=== PATIENT | male | born 1960 | race Caucasian/White ===

== ENCOUNTER 2021-06-27 00:58 | Inpatient (IN) | payer BC, MEDICAID ==
[~2021-06-27] VITALS: Ht 185.4 cm; Wt 74.7 kg
[2021-06-27] MEDS ORDERED: SODIUM CHLORIDE 0.9% 1,000 ML IV ONE ×2 (01:30→05:30)
[2021-06-27 01:55] LABS: Basophils # (auto) 0.1 10 ^3/uL (0-0.2); Basophils % (auto) 0.9 % (0.0-2.0); Eosinophils # (auto) 0.2 10 ^3/uL (0-0.8); Eosinophils % (auto) 1.1 % (0.0-7.0); Hematocrit 45.8 % (41.0-53.0); Hemoglobin 15.2 g/dL (13.5-17.5); Lymphocytes # (auto) 2.3 10 ^3/uL (0.4-5.4); Lymphocytes % (auto) 15.9 % (10.0-50.0); Mean Corpuscular Hemoglobin 27.9 pg (28.0-32.0); Mean Corpuscular Hgb Conc. 33.1 g/dL (32.0-36.0); Mean Corpuscular Volume 84.2 fL (80.0-100.0); Monocytes # (auto) 0.9 10 ^3/uL (0-1.3); Monocytes % (auto) 5.9 % (0.0-12.0); Neutrophils % (auto) 76.2 % (37.0-80.0); Red Blood Cells 5.44 10^6/uL (4.5-5.90); Red Cell Distribution Width 14.1 % (11.8-14.3); White Blood Cell 14.5 10^3/uL (4.4-10.8)
[2021-06-27 02:34] LABS: Albumin 3.3 g/dL (3.4-5.0); Calcium 9.1 mg/dL (8.5-10.1)
[2021-06-27 02:36] LABS: BUN/Creatinine Ratio 21.1
[2021-06-27 02:38] LABS: Bilirubin, Total 0.2 mg/dL (0.2-1.0); Total Protein 7.6 g/dL (6.4-8.2)
[2021-06-27] MEDS ORDERED: IOHEXOL 350 MG/ML 100ML IJ ONE (03:08)
[2021-06-27] MEDS ORDERED: ONDANSETRON HCL 4 MG/2 ML VIAL IV PRN (05:30)
[2021-06-27] MEDS ORDERED: ACETAMINOPHEN 325 MG TAB PO PRN (05:30)
[2021-06-27] MEDS ORDERED: InsuLIN REG 1unit/0.01ml Soln (100units/ml) IV ONE (05:30)
[2021-06-27] MEDS ORDERED: DEXTROSE (50%) 50ML SYRG IV PRN (05:30)
[2021-06-27] MEDS: HYDROcodone-ACET 5/325MG TAB PO PRN ×3 (06:39→22:37)
[2021-06-27] MEDS: ACCU-CHEK COMFORT CURVE STRIP VI SCH ×4 (07:01→22:34)
[2021-06-27] MEDS: InsuLIN REG 1unit/0.01ml Soln (100units/ml) SC SCH ×4 (07:06→22:36)
[2021-06-27] MEDS: MIDODRINE HCL 10 MG TAB PO SCH ×3 (09:39→18:02)
[2021-06-27] MEDS: PANTOPRAZOLE 40 MG TAB PO SCH (10:25)
[2021-06-27] MEDS ORDERED: cefTRIAXone 1GM/50ML D5W 50 ML IV ONE (11:45)
[2021-06-27 12:24] LABS: CRP High Sensitivity 0.79 mg/dL (< 0.3)
[2021-06-27] MEDS ORDERED: CLINDAMYCIN 600MG IV 50 ML IV ONE (12:45)
[2021-06-27] MEDS: SODIUM CHLORIDE 0.9% 1,000 ML IV SCH (12:57)
[2021-06-27 17:00] VITALS: BP 169/91
[2021-06-27] MEDS: CLINDAMYCIN 600MG IV 50 ML IV SCH (21:59)
[2021-06-27] MEDS: INSULIN LANTUS (GLARGINE) 1 /0.01ml (100units/ml) SC SCH (22:35)
[2021-06-28] MEDS: SODIUM CHLORIDE 0.9% 1,000 ML IV SCH ×2 (04:25→21:05)
[2021-06-28 05:00] VITALS: BP 129/63
[2021-06-28] MEDS: MIDODRINE HCL 10 MG TAB PO SCH ×3 (05:34→18:43)
[2021-06-28] MEDS: CLINDAMYCIN 600MG IV 50 ML IV SCH ×3 (05:34→20:11)
[2021-06-28] MEDS: ACCU-CHEK COMFORT CURVE STRIP VI SCH ×4 (06:52→23:20)
[2021-06-28] MEDS: INSULIN LANTUS (GLARGINE) 1 /0.01ml (100units/ml) SC SCH ×2 (06:53→23:19)
[2021-06-28] MEDS: InsuLIN REG 1unit/0.01ml Soln (100units/ml) SC SCH ×4 (06:54→22:00)
[2021-06-28 09:00] VITALS: BP 97/60
[2021-06-28 09:10] LABS: Basophils # (auto) 0.1 10 ^3/uL (0-0.2); Basophils % (auto) 1.2 % (0.0-2.0); Eosinophils # (auto) 0.4 10 ^3/uL (0-0.8); Hematocrit 41.4 % (41.0-53.0); Hemoglobin 13.8 g/dL (13.5-17.5); Lymphocytes # (auto) 2.3 10 ^3/uL (0.4-5.4); Lymphocytes % (auto) 31.7 % (10.0-50.0); Mean Corpuscular Hgb Conc. 33.3 g/dL (32.0-36.0); Mean Corpuscular Volume 84.2 fL (80.0-100.0); Monocytes # (auto) 0.6 10 ^3/uL (0-1.3); Monocytes % (auto) 7.9 % (0.0-12.0); Neutrophils # (auto) 3.8 10 ^3/uL (1.6-8.6); Neutrophils % (auto) 53.2 % (37.0-80.0); Nucleated Red Blood Cells % 0.1 %; Red Blood Cells 4.92 10^6/uL (4.5-5.90); Red Cell Distribution Width 13.6 % (11.8-14.3); White Blood Cell 7.2 10^3/uL (4.4-10.8)
[2021-06-28 09:23] LABS: INR 1.04 (0.9-1.15); Partial Thromboplastin Time 25.9 sec (23.6-33.0)
[2021-06-28] MEDS: cefTRIAXone 1GM/50ML D5W 50 ML IV SCH (10:20)
[2021-06-28] MEDS: PANTOPRAZOLE 40 MG TAB PO SCH (10:21)
[2021-06-28] MEDS: HYDROcodone-ACET 5/325MG TAB PO PRN (10:32)
[2021-06-28 10:52] LABS: Potassium 4.3 mmol/L (3.5-5.1)
[2021-06-28 11:32] LABS: Albumin 2.7 g/dL (3.4-5.0); BUN/Creatinine Ratio 26.9; Bilirubin, Total 0.4 mg/dL (0.2-1.0); Calcium 8.5 mg/dL (8.5-10.1); Magnesium 2.2 mg/dL (1.6-2.6); Phosphorus 4.5 mg/dL (2.5-4.90); Total Protein 6.7 g/dL (6.4-8.2)
[2021-06-28 13:00] VITALS: BP 136/77
[2021-06-28 16:41] LABS: Urine WBC None Seen /hpf (0 - 3)
[2021-06-28 17:00] VITALS: BP 118/77
[2021-06-28 17:03] LABS: Urine Bacteria NONE SEEN /hpf (None Seen); Urine Blood Negative /uL (Negative); Urine Specific Gravity 1.015 (1.001-1.035)
[2021-06-28 17:11] LABS: Alcohol, Urine < 3.0 mg/dL (0-10); Amphetamine Screen, Urine POSITIVE (NEGATIVE); Barbiturate Scree,Urine NEGATIVE (NEGATIVE); Benzodiazephine Screen, Urine NEGATIVE (NEGATIVE); Cannabinoid Screen, Urine NEGATIVE (NEGATIVE); Cocaine Screen, Urine NEGATIVE (NEGATIVE); Phencyclidine Screen, Urine NEGATIVE (NEGATIVE)
[2021-06-28 17:19] LABS: Opiate Scree,Urine NEGATIVE (NEGATIVE)
[2021-06-28 22:00] VITALS: BP 142/76
[2021-06-29 05:00] VITALS: BP 121/63
[2021-06-29 05:42] LABS: Basophils # (auto) 0.1 10 ^3/uL (0-0.2); Eosinophils # (auto) 0.3 10 ^3/uL (0-0.8); Eosinophils % (auto) 4.2 % (0.0-7.0); Hemoglobin 14.3 g/dL (13.5-17.5); Lymphocytes # (auto) 1.8 10 ^3/uL (0.4-5.4); Lymphocytes % (auto) 22.4 % (10.0-50.0); Mean Corpuscular Hemoglobin 28.7 pg (28.0-32.0); Mean Corpuscular Hgb Conc. 34.9 g/dL (32.0-36.0); Mean Corpuscular Volume 82.2 fL (80.0-100.0); Monocytes # (auto) 0.5 10 ^3/uL (0-1.3); Monocytes % (auto) 6.6 % (0.0-12.0); Neutrophils # (auto) 5.3 10 ^3/uL (1.6-8.6); Neutrophils % (auto) 65.8 % (37.0-80.0); Nucleated Red Blood Cells % 0.1 %; Red Blood Cells 4.99 10^6/uL (4.5-5.90); Red Cell Distribution Width 13.6 % (11.8-14.3); White Blood Cell 8.1 10^3/uL (4.4-10.8)
[2021-06-29 05:46] LABS: INR 1.03 (0.9-1.15); Partial Thromboplastin Time 26.5 sec (23.6-33.0)
[2021-06-29] MEDS: CLINDAMYCIN 600MG IV 50 ML IV SCH ×3 (05:52→21:22)
[2021-06-29] MEDS: ACCU-CHEK COMFORT CURVE STRIP VI SCH ×4 (05:52→21:22)
[2021-06-29] MEDS: INSULIN LANTUS (GLARGINE) 1 /0.01ml (100units/ml) SC SCH ×2 (05:53→21:26)
[2021-06-29] MEDS: InsuLIN REG 1unit/0.01ml Soln (100units/ml) SC SCH ×4 (05:54→22:58)
[2021-06-29] MEDS: MIDODRINE HCL 10 MG TAB PO SCH ×3 (05:55→17:35)
[2021-06-29 06:00] LABS: Albumin 2.9 g/dL (3.4-5.0); Calcium 8.8 mg/dL (8.5-10.1); Potassium 4.3 mmol/L (3.5-5.1)
[2021-06-29 06:02] LABS: BUN/Creatinine Ratio 23.3
[2021-06-29 06:04] LABS: Bilirubin, Total 0.3 mg/dL (0.2-1.0); Total Protein 6.9 g/dL (6.4-8.2)
[2021-06-29 09:00] VITALS: BP 109/64
[2021-06-29] MEDS: PANTOPRAZOLE 40 MG TAB PO SCH (10:10)
[2021-06-29] MEDS: cefTRIAXone 1GM/50ML D5W 50 ML IV SCH (10:10)
[2021-06-29 13:00] VITALS: BP 99/72
[2021-06-29] MEDS: SODIUM CHLORIDE 0.9% 1,000 ML IV SCH (15:17)
[2021-06-29] MEDS ORDERED: CHOLECALCIFEROL (VITD3) 2,000 UNIT CAP/TAB PO ONE (16:45)
[2021-06-29 17:00] VITALS: BP 157/84
[2021-06-29] MEDS: AMPICILLIN INJ 1 GM in SODIUM CHL 0.9% 50 ML IV SCH (18:43)
[2021-06-29 22:00] VITALS: BP 116/79
[2021-06-30] MEDS: AMPICILLIN INJ 1 GM in SODIUM CHL 0.9% 50 ML IV SCH ×4 (00:10→17:46)
[2021-06-30] MEDS: HYDROcodone-ACET 5/325MG TAB PO PRN ×2 (03:16→12:00)
[2021-06-30 05:17] VITALS: BP 95/53
[2021-06-30] MEDS: CLINDAMYCIN 600MG IV 50 ML IV SCH ×3 (05:21→22:17)
[2021-06-30] MEDS: MIDODRINE HCL 10 MG TAB PO SCH ×3 (06:11→17:46)
[2021-06-30] MEDS: SODIUM CHLORIDE 0.9% 1,000 ML IV SCH ×2 (06:25→23:05)
[2021-06-30] MEDS: ACCU-CHEK COMFORT CURVE STRIP VI SCH ×4 (07:10→22:25)
[2021-06-30] MEDS: INSULIN LANTUS (GLARGINE) 1 /0.01ml (100units/ml) SC SCH ×2 (07:11→22:25)
[2021-06-30] MEDS: InsuLIN REG 1unit/0.01ml Soln (100units/ml) SC SCH ×4 (07:12→22:24)
[2021-06-30 09:00] VITALS: BP 90/54
[2021-06-30] MEDS: CHOLECALCIFEROL (VITD3) 2,000 UNIT CAP/TAB PO SCH (09:06)
[2021-06-30] MEDS: PANTOPRAZOLE 40 MG TAB PO SCH (09:06)
[2021-06-30] MEDS ORDERED: APIX5TAB PO (10:33)
[2021-06-30] MEDS ORDERED: INSRTEST IV (10:33)
[2021-06-30 13:00] VITALS: BP 143/90
[2021-06-30 17:00] VITALS: BP 119/83
[2021-06-30 22:00] VITALS: BP 122/65
[2021-07-01] MEDS: AMPICILLIN INJ 1 GM in SODIUM CHL 0.9% 50 ML IV SCH ×4 (01:28→18:45)
[2021-07-01] MEDS: CLINDAMYCIN 600MG IV 50 ML IV SCH ×3 (04:46→20:46)
[2021-07-01 05:06] VITALS: BP 135/77
[2021-07-01] MEDS: MIDODRINE HCL 10 MG TAB PO SCH ×3 (06:01→18:37)
[2021-07-01] MEDS: InsuLIN REG 1unit/0.01ml Soln (100units/ml) SC SCH ×4 (07:01→23:03)
[2021-07-01] MEDS: INSULIN LANTUS (GLARGINE) 1 /0.01ml (100units/ml) SC SCH ×2 (07:02→23:05)
[2021-07-01] MEDS: ACCU-CHEK COMFORT CURVE STRIP VI SCH ×4 (07:02→23:05)
[2021-07-01 07:07] LABS: BUN/Creatinine Ratio 26.7; Calcium 7.6 mg/dL (8.5-10.1); Potassium 3.8 mmol/L (3.5-5.1)
[2021-07-01 09:00] VITALS: BP 92/52
[2021-07-01] MEDS: PANTOPRAZOLE 40 MG TAB PO SCH (09:32)
[2021-07-01] MEDS: CHOLECALCIFEROL (VITD3) 2,000 UNIT CAP/TAB PO SCH (09:32)
[2021-07-01] MEDS ORDERED: ROPIVACAINE 0.5% (5MG/ML) 20ML AMPULE IJ ONE (09:38)
[2021-07-01] MEDS ORDERED: ceFAZolin 1GM VL ONE (09:38)
[2021-07-01] MEDS ORDERED: hydrALAZINE HCL 20 MG/ML VL IV PRN (10:30)
[2021-07-01] MEDS ORDERED: ACCU-CHEK COMFORT CURVE STRIP VI ONE (10:30)
[2021-07-01] MEDS ORDERED: ONDANSETRON HCL 4 MG/2 ML VIAL IV PRN ×2 (10:30→11:30)
[2021-07-01] MEDS ORDERED: LABETALOL HCL 5 MG/ML 4ML SYRINGE IV PRN ×2 (10:30→11:30)
[2021-07-01] MEDS ORDERED: MORPHINE SULFATE 4 MG/ML SYR/VIAL IV PRN ×2 (10:30→11:30)
[2021-07-01] MEDS ORDERED: MIDAZOLAM HCL 2MG/2ML 2ml VIAL (1mg/ml) IV PRN ×2 (10:30→11:30)
[2021-07-01] MEDS ORDERED: ePHEDrine SULFATE 50 MG/ML AMP IV PRN ×2 (10:30→11:30)
[2021-07-01] MEDS ORDERED: HYDROmorphone HCL 2 MG/ML VL IV PRN ×2 (10:30→11:30)
[2021-07-01] MEDS ORDERED: ceFAZolin 1GM/50ML 100 ML IV ONE (10:31)
[2021-07-01] MEDS ORDERED: PHENYLEPHRINE HCL 10 MG/ML VL IV ONE (10:35)
[2021-07-01] MEDS ORDERED: SUCCINYLCHOLINE CHLORIDE 20 MG/ML 10ML VIAL IV ONE (10:35)
[2021-07-01] MEDS ORDERED: PROPOFOL 10 MG/ML 20 ML IV ONE (10:35)
[2021-07-01] MEDS ORDERED: MIDAZOLAM HCL 2MG/2ML 2ml VIAL (1mg/ml) ONE (10:35)
[2021-07-01] MEDS ORDERED: MEPERIDINE HCL (50 MG/ML) 1 ML VIAL ONE (10:35)
[2021-07-01] MEDS ORDERED: fentaNYL CITRATE 100 MCG/2 ML VL ONE (10:35)
[2021-07-01] MEDS ORDERED: DexAMETHasone SOD PHOS 10MG/1ML VIAL INJ ONE (12:14)
[2021-07-01] MEDS: SODIUM CHLORIDE 0.9% 1,000 ML IV SCH (15:43)
[2021-07-01 17:00] VITALS: BP 98/64
[2021-07-01] MEDS: HYDROcodone-ACET 5/325MG TAB PO PRN (20:45)
[2021-07-01 22:00] VITALS: BP 106/57
[2021-07-02] MEDS: AMPICILLIN INJ 1 GM in SODIUM CHL 0.9% 50 ML IV SCH ×3 (00:52→11:00)
[2021-07-02 05:00] VITALS: BP 115/61
[2021-07-02] MEDS: CLINDAMYCIN 600MG IV 50 ML IV SCH ×3 (05:49→22:17)
[2021-07-02] MEDS: MIDODRINE HCL 10 MG TAB PO SCH ×3 (06:57→18:07)
[2021-07-02] MEDS: InsuLIN REG 1unit/0.01ml Soln (100units/ml) SC SCH ×4 (06:59→20:00)
[2021-07-02] MEDS: ACCU-CHEK COMFORT CURVE STRIP VI SCH ×3 (07:00→20:48)
[2021-07-02] MEDS: INSULIN LANTUS (GLARGINE) 1 /0.01ml (100units/ml) SC SCH ×2 (07:00→22:18)
[2021-07-02 07:03] LABS: Basophils # (auto) 0.1 10 ^3/uL (0-0.2); Basophils % (auto) 0.4 % (0.0-2.0); Eosinophils # (auto) 0 10 ^3/uL (0-0.8); Eosinophils % (auto) 0.2 % (0.0-7.0); Hematocrit 37.3 % (41.0-53.0); Hemoglobin 12.9 g/dL (13.5-17.5); Lymphocytes # (auto) 1.7 10 ^3/uL (0.4-5.4); Lymphocytes % (auto) 10.9 % (10.0-50.0); Mean Corpuscular Hemoglobin 28.3 pg (28.0-32.0); Mean Corpuscular Hgb Conc. 34.5 g/dL (32.0-36.0); Mean Corpuscular Volume 81.9 fL (80.0-100.0); Monocytes % (auto) 6.5 % (0.0-12.0); Neutrophils # (auto) 12.9 10 ^3/uL (1.6-8.6); Nucleated Red Blood Cells % 0.1 %; Red Blood Cells 4.56 10^6/uL (4.5-5.90); Red Cell Distribution Width 13.7 % (11.8-14.3); White Blood Cell 15.8 10^3/uL (4.4-10.8)
[2021-07-02 07:10] LABS: BUN/Creatinine Ratio 26.4; Calcium 8.9 mg/dL (8.5-10.1); Magnesium 1.9 mg/dL (1.6-2.6); Potassium 4.1 mmol/L (3.5-5.1)
[2021-07-02] MEDS: SODIUM CHLORIDE 0.9% 1,000 ML IV SCH (08:25)
[2021-07-02 09:00] VITALS: BP 118/74
[2021-07-02] MEDS: PANTOPRAZOLE 40 MG TAB PO SCH (10:31)
[2021-07-02] MEDS: CHOLECALCIFEROL (VITD3) 2,000 UNIT CAP/TAB PO SCH (10:31)
[2021-07-02 13:00] VITALS: BP 129/73
[2021-07-02] MEDS ORDERED: DEXTROSE (50%) 50ML SYRG IV PRN (14:15)
[2021-07-02] MEDS ORDERED: MAGNESIUM SULFATE 1GM/100ML 100 ML IV ONE (14:15)
[2021-07-02] MEDS ORDERED: cefTRIAXone 1GM/50ML D5W 50 ML IV ONE (14:15)
[2021-07-02] MEDS: HYDROcodone-ACET 5/325MG TAB PO PRN (16:55)
[2021-07-02 17:00] VITALS: BP 115/69
[2021-07-02 22:00] VITALS: BP 120/70
[2021-07-03] MEDS: InsuLIN REG 1unit/0.01ml Soln (100units/ml) SC SCH ×6 (00:23→20:27)
[2021-07-03] MEDS: ACCU-CHEK COMFORT CURVE STRIP VI SCH ×5 (00:23→20:27)
[2021-07-03] MEDS: SODIUM CHLORIDE 0.9% 1,000 ML IV SCH (01:29)
[2021-07-03 05:00] VITALS: BP 105/54
[2021-07-03] MEDS: CLINDAMYCIN 600MG IV 50 ML IV SCH ×2 (05:03→12:52)
[2021-07-03 06:13] LABS: Basophils # (auto) 0.1 10 ^3/uL (0-0.2); Basophils % (auto) 0.7 % (0.0-2.0); Eosinophils # (auto) 0.2 10 ^3/uL (0-0.8); Eosinophils % (auto) 1.7 % (0.0-7.0); Hematocrit 36.4 % (41.0-53.0); Hemoglobin 12.6 g/dL (13.5-17.5); Lymphocytes # (auto) 1.9 10 ^3/uL (0.4-5.4); Lymphocytes % (auto) 19.1 % (10.0-50.0); Mean Corpuscular Hemoglobin 28.7 pg (28.0-32.0); Mean Corpuscular Hgb Conc. 34.7 g/dL (32.0-36.0); Mean Corpuscular Volume 82.8 fL (80.0-100.0); Monocytes # (auto) 1.2 10 ^3/uL (0-1.3); Monocytes % (auto) 12.5 % (0.0-12.0); Neutrophils # (auto) 6.5 10 ^3/uL (1.6-8.6); Nucleated Red Blood Cells % 0.1 %; Red Blood Cells 4.39 10^6/uL (4.5-5.90); Red Cell Distribution Width 13.7 % (11.8-14.3); White Blood Cell 9.9 10^3/uL (4.4-10.8)
[2021-07-03] MEDS: MIDODRINE HCL 10 MG TAB PO SCH ×2 (06:24→12:50)
[2021-07-03] MEDS: INSULIN LANTUS (GLARGINE) 1 /0.01ml (100units/ml) SC SCH ×2 (06:40→23:10)
[2021-07-03 06:55] LABS: Magnesium 1.8 mg/dL (1.6-2.6); Potassium 3.8 mmol/L (3.5-5.1)
[2021-07-03 09:00] VITALS: BP 92/53
[2021-07-03] MEDS: CHOLECALCIFEROL (VITD3) 2,000 UNIT CAP/TAB PO SCH (09:57)
[2021-07-03] MEDS: PANTOPRAZOLE 40 MG TAB PO SCH (09:57)
[2021-07-03] MEDS: cefTRIAXone 1GM/50ML D5W 50 ML IV SCH (09:57)
[2021-07-03 13:00] VITALS: BP 116/74
[2021-07-03] MEDS: HYDROcodone-ACET 5/325MG TAB PO PRN (14:08)
[2021-07-03 16:55] VITALS: BP 122/54
[2021-07-03 22:00] VITALS: BP 107/66
[2021-07-04] MEDS: ACCU-CHEK COMFORT CURVE STRIP VI SCH ×6 (00:30→21:59)
[2021-07-04] MEDS: CLINDAMYCIN 600MG IV 50 ML IV SCH ×4 (00:34→21:59)
[2021-07-04] MEDS: SODIUM CHLORIDE 0.9% 1,000 ML IV SCH (00:35)
[2021-07-04] MEDS: InsuLIN REG 1unit/0.01ml Soln (100units/ml) SC SCH ×6 (04:41→21:57)
[2021-07-04 05:00] VITALS: BP 104/53
[2021-07-04 06:12] LABS: Hematocrit 36.8 % (41.0-53.0); Hemoglobin 13.1 g/dL (13.5-17.5)
[2021-07-04] MEDS: INSULIN LANTUS (GLARGINE) 1 /0.01ml (100units/ml) SC SCH ×2 (06:35→21:58)
[2021-07-04] MEDS: MIDODRINE HCL 10 MG TAB PO SCH ×3 (06:43→19:50)
[2021-07-04 08:27] VITALS: BP 99/66
[2021-07-04] MEDS: cefTRIAXone 1GM/50ML D5W 50 ML IV SCH (11:02)
[2021-07-04] MEDS: PANTOPRAZOLE 40 MG TAB PO SCH (11:03)
[2021-07-04] MEDS: HYDROcodone-ACET 5/325MG TAB PO PRN (11:03)
[2021-07-04] MEDS: CHOLECALCIFEROL (VITD3) 2,000 UNIT CAP/TAB PO SCH (11:04)
[2021-07-04 12:00] VITALS: BP 152/90
[2021-07-04 16:18] VITALS: BP 99/52
[2021-07-04 22:00] VITALS: BP 156/88
[2021-07-05] MEDS: InsuLIN REG 1unit/0.01ml Soln (100units/ml) SC SCH ×6 (00:22→20:08)
[2021-07-05] MEDS: ACCU-CHEK COMFORT CURVE STRIP VI SCH ×6 (02:06→20:06)
[2021-07-05] MEDS: HYDROcodone-ACET 5/325MG TAB PO PRN ×3 (02:18→19:13)
[2021-07-05 05:00] VITALS: BP 115/70
[2021-07-05] MEDS: CLINDAMYCIN 600MG IV 50 ML IV SCH ×3 (05:06→20:06)
[2021-07-05] MEDS: MIDODRINE HCL 10 MG TAB PO SCH ×3 (06:04→18:22)
[2021-07-05 09:00] VITALS: BP 142/82
[2021-07-05] MEDS: cefTRIAXone 1GM/50ML D5W 50 ML IV SCH (09:06)
[2021-07-05] MEDS: INSULIN LANTUS (GLARGINE) 1 /0.01ml (100units/ml) SC SCH ×2 (09:07→20:08)
[2021-07-05] MEDS: CHOLECALCIFEROL (VITD3) 2,000 UNIT CAP/TAB PO SCH (10:52)
[2021-07-05] MEDS: PANTOPRAZOLE 40 MG TAB PO SCH (10:52)
[2021-07-05 12:30] VITALS: BP 137/70
[2021-07-05 17:05] VITALS: BP 97/49
[2021-07-05 22:08] VITALS: BP 135/72
[2021-07-06] MEDS: InsuLIN REG 1unit/0.01ml Soln (100units/ml) SC SCH ×6 (00:20→23:54)
[2021-07-06] MEDS: ACCU-CHEK COMFORT CURVE STRIP VI SCH ×7 (00:20→23:51)
[2021-07-06] MEDS: CLINDAMYCIN 600MG IV 50 ML IV SCH ×3 (04:02→21:13)
[2021-07-06 05:00] VITALS: BP 127/66
[2021-07-06] MEDS: MIDODRINE HCL 10 MG TAB PO SCH ×4 (05:36→17:52)
[2021-07-06] MEDS: HYDROcodone-ACET 5/325MG TAB PO PRN ×3 (05:37→21:13)
[2021-07-06] MEDS: INSULIN LANTUS (GLARGINE) 1 /0.01ml (100units/ml) SC SCH ×2 (06:22→21:15)
[2021-07-06 09:00] VITALS: BP 133/72
[2021-07-06] MEDS: cefTRIAXone 1GM/50ML D5W 50 ML IV SCH (09:18)
[2021-07-06] MEDS: PANTOPRAZOLE 40 MG TAB PO SCH (09:18)
[2021-07-06] MEDS: CHOLECALCIFEROL (VITD3) 2,000 UNIT CAP/TAB PO SCH (09:19)
[2021-07-06] MEDS ORDERED: DEXTROSE (50%) 50ML SYRG IV PRN (11:45)
[2021-07-06] MEDS ORDERED: CHOL20007 PO (11:48)
[2021-07-06] MEDS ORDERED: PANT40TA2 PO (11:48)
[2021-07-06] MEDS ORDERED: INSLANTI SC (11:48)
[2021-07-06] MEDS ORDERED: MIDO5TAB3 PO (11:48)
[2021-07-06 12:32] VITALS: BP 120/64
[2021-07-06 13:54] LABS: Basophils # (auto) 0.1 10 ^3/uL (0-0.2); Basophils % (auto) 0.8 % (0.0-2.0); Eosinophils # (auto) 0.3 10 ^3/uL (0-0.8); Eosinophils % (auto) 3.3 % (0.0-7.0); Hematocrit 34.6 % (41.0-53.0); Lymphocytes # (auto) 2.2 10 ^3/uL (0.4-5.4); Lymphocytes % (auto) 20.7 % (10.0-50.0); Mean Corpuscular Hemoglobin 28.6 pg (28.0-32.0); Mean Corpuscular Hgb Conc. 34.5 g/dL (32.0-36.0); Mean Corpuscular Volume 82.9 fL (80.0-100.0); Monocytes # (auto) 0.9 10 ^3/uL (0-1.3); Monocytes % (auto) 8.5 % (0.0-12.0); Neutrophils % (auto) 66.7 % (37.0-80.0); Red Blood Cells 4.18 10^6/uL (4.5-5.90); Red Cell Distribution Width 13.5 % (11.8-14.3); White Blood Cell 10.4 10^3/uL (4.4-10.8)
[2021-07-06 14:07] LABS: Partial Thromboplastin Time 27.9 sec (23.6-33.0)
[2021-07-06 16:42] VITALS: BP 103/60
[2021-07-06] MEDS: APIXABAN 5 MG TAB PO SCH (21:13)
[2021-07-06 22:00] VITALS: BP 108/56
[2021-07-07 05:00] VITALS: BP 121/59
[2021-07-07] MEDS: MIDODRINE HCL 10 MG TAB PO SCH ×3 (05:36→17:51)
[2021-07-07] MEDS: ACCU-CHEK COMFORT CURVE STRIP VI SCH ×3 (05:36→17:50)
[2021-07-07] MEDS: CLINDAMYCIN 600MG IV 50 ML IV SCH (05:36)
[2021-07-07] MEDS: INSULIN LANTUS (GLARGINE) 1 /0.01ml (100units/ml) SC SCH ×2 (05:39→21:12)
[2021-07-07] MEDS: InsuLIN REG 1unit/0.01ml Soln (100units/ml) SC SCH ×3 (05:39→17:50)
[2021-07-07] MEDS: HYDROcodone-ACET 5/325MG TAB PO PRN ×3 (05:40→21:09)
[2021-07-07 06:50] LABS: Basophils # (auto) 0.1 10 ^3/uL (0-0.2); Basophils % (auto) 1.2 % (0.0-2.0); Eosinophils # (auto) 0.4 10 ^3/uL (0-0.8); Eosinophils % (auto) 3.4 % (0.0-7.0); Hematocrit 36.8 % (41.0-53.0); Hemoglobin 12.5 g/dL (13.5-17.5); Lymphocytes # (auto) 2.8 10 ^3/uL (0.4-5.4); Mean Corpuscular Hemoglobin 28.2 pg (28.0-32.0); Mean Corpuscular Volume 82.8 fL (80.0-100.0); Monocytes % (auto) 8.8 % (0.0-12.0); Neutrophils # (auto) 7.3 10 ^3/uL (1.6-8.6); Neutrophils % (auto) 62.6 % (37.0-80.0); Nucleated Red Blood Cells % 0.2 %; Red Blood Cells 4.44 10^6/uL (4.5-5.90); Red Cell Distribution Width 13.6 % (11.8-14.3); White Blood Cell 11.7 10^3/uL (4.4-10.8)
[2021-07-07 07:07] LABS: BUN/Creatinine Ratio 20.6; Calcium 9.2 mg/dL (8.5-10.1); Magnesium 2.2 mg/dL (1.6-2.6); Potassium 4.2 mmol/L (3.5-5.1)
[2021-07-07 09:00] VITALS: BP 104/57
[2021-07-07] MEDS: APIXABAN 5 MG TAB PO SCH ×2 (09:43→21:09)
[2021-07-07] MEDS: cefTRIAXone 1GM/50ML D5W 50 ML IV SCH (09:43)
[2021-07-07] MEDS: PANTOPRAZOLE 40 MG TAB PO SCH (09:43)
[2021-07-07] MEDS: CHOLECALCIFEROL (VITD3) 2,000 UNIT CAP/TAB PO SCH (09:44)
[2021-07-07 12:00] VITALS: BP 103/58
[2021-07-07] MEDS: DAPTOmycin 500 MG in SODIUM CHL 0.9% 50 ML IV SCH (13:20)
[2021-07-07 17:30] VITALS: BP 100/52
[2021-07-07] MEDS: Juven Fruit Punch Powder PACKET 28.8gm PO SCH (17:51)
[2021-07-07 22:00] VITALS: BP 99/50
[2021-07-08] MEDS: ACCU-CHEK COMFORT CURVE STRIP VI SCH ×4 (00:08→17:49)
[2021-07-08] MEDS: InsuLIN REG 1unit/0.01ml Soln (100units/ml) SC SCH ×4 (00:08→17:49)
[2021-07-08 05:00] VITALS: BP 102/49
[2021-07-08] MEDS: MIDODRINE HCL 10 MG TAB PO SCH ×3 (07:02→17:49)
[2021-07-08] MEDS: HYDROcodone-ACET 5/325MG TAB PO PRN ×3 (07:04→22:20)
[2021-07-08] MEDS: INSULIN LANTUS (GLARGINE) 1 /0.01ml (100units/ml) SC SCH ×2 (07:09→22:33)
[2021-07-08 08:00] VITALS: BP 102/66
[2021-07-08] MEDS: cefTRIAXone 1GM/50ML D5W 50 ML IV SCH (09:52)
[2021-07-08] MEDS: Juven Fruit Punch Powder PACKET 28.8gm PO SCH ×2 (09:52→17:49)
[2021-07-08] MEDS: PANTOPRAZOLE 40 MG TAB PO SCH (09:53)
[2021-07-08] MEDS: APIXABAN 5 MG TAB PO SCH ×2 (09:53→22:19)
[2021-07-08] MEDS: FLORASTOR (S. BOULARDII) 250 MG CAP PO SCH (09:53)
[2021-07-08] MEDS: CHOLECALCIFEROL (VITD3) 2,000 UNIT CAP/TAB PO SCH (09:53)
[2021-07-08] MEDS ORDERED: SACC250C PO (11:17)
[2021-07-08 12:00] VITALS: BP 102/55
[2021-07-08] MEDS: DAPTOmycin 500 MG in SODIUM CHL 0.9% 50 ML IV SCH (13:10)
[2021-07-08 16:00] VITALS: BP 104/53
[2021-07-08 22:00] VITALS: BP 112/55
[2021-07-09] VITALS (7 sets, daily range): BP systolic 89–130; BP diastolic 52–70
[2021-07-09] MEDS: HYDROcodone-ACET 5/325MG TAB PO PRN ×3 (04:51→18:11)
[2021-07-09 05:31] LABS: Basophils # (auto) 0.1 10 ^3/uL (0-0.2); Basophils % (auto) 0.8 % (0.0-2.0); Eosinophils # (auto) 0.4 10 ^3/uL (0-0.8); Eosinophils % (auto) 3.1 % (0.0-7.0); Hematocrit 35.8 % (41.0-53.0); Hemoglobin 12.3 g/dL (13.5-17.5); Lymphocytes # (auto) 2.7 10 ^3/uL (0.4-5.4); Lymphocytes % (auto) 22.7 % (10.0-50.0); Mean Corpuscular Hemoglobin 28.5 pg (28.0-32.0); Mean Corpuscular Hgb Conc. 34.5 g/dL (32.0-36.0); Mean Corpuscular Volume 82.6 fL (80.0-100.0); Monocytes # (auto) 0.8 10 ^3/uL (0-1.3); Monocytes % (auto) 7.2 % (0.0-12.0); Neutrophils # (auto) 7.8 10 ^3/uL (1.6-8.6); Neutrophils % (auto) 66.2 % (37.0-80.0); Nucleated Red Blood Cells % 0.1 %; Red Blood Cells 4.33 10^6/uL (4.5-5.90); Red Cell Distribution Width 13.5 % (11.8-14.3); White Blood Cell 11.8 10^3/uL (4.4-10.8)
[2021-07-09 05:47] LABS: BUN/Creatinine Ratio 30.6; Calcium 9.3 mg/dL (8.5-10.1); Potassium 4.2 mmol/L (3.5-5.1)
[2021-07-09] MEDS: MIDODRINE HCL 10 MG TAB PO SCH ×3 (05:57→17:59)
[2021-07-09] MEDS: ACCU-CHEK COMFORT CURVE STRIP VI SCH ×4 (05:57→18:00)
[2021-07-09] MEDS: InsuLIN REG 1unit/0.01ml Soln (100units/ml) SC SCH ×4 (05:58→18:00)
[2021-07-09] MEDS: INSULIN LANTUS (GLARGINE) 1 /0.01ml (100units/ml) SC SCH ×2 (06:03→22:16)
[2021-07-09] MEDS: Juven Fruit Punch Powder PACKET 28.8gm PO SCH ×2 (08:27→17:59)
[2021-07-09] MEDS: FLORASTOR (S. BOULARDII) 250 MG CAP PO SCH (08:28)
[2021-07-09] MEDS: APIXABAN 5 MG TAB PO SCH ×2 (08:28→22:15)
[2021-07-09] MEDS: CHOLECALCIFEROL (VITD3) 2,000 UNIT CAP/TAB PO SCH (08:29)
[2021-07-09] MEDS: PANTOPRAZOLE 40 MG TAB PO SCH (08:29)
[2021-07-09] MEDS: cefTRIAXone 1GM/50ML D5W 50 ML IV SCH (08:44)
[2021-07-09] MEDS: DAPTOmycin 500 MG in SODIUM CHL 0.9% 50 ML IV SCH (14:48)
[2021-07-10] MEDS: ACCU-CHEK COMFORT CURVE STRIP VI SCH ×4 (00:01→18:00)
[2021-07-10] MEDS: InsuLIN REG 1unit/0.01ml Soln (100units/ml) SC SCH ×4 (00:08→18:00)
[2021-07-10] MEDS: HYDROcodone-ACET 5/325MG TAB PO PRN ×2 (02:17→09:59)
[2021-07-10 04:44] VITALS: BP 123/67
[2021-07-10 06:03] LABS: Basophils # (auto) 0.1 10 ^3/uL (0-0.2); Basophils % (auto) 1.3 % (0.0-2.0); Eosinophils # (auto) 0.4 10 ^3/uL (0-0.8); Eosinophils % (auto) 3.8 % (0.0-7.0); Hematocrit 32.9 % (41.0-53.0); Hemoglobin 11.5 g/dL (13.5-17.5); Lymphocytes % (auto) 27.2 % (10.0-50.0); Mean Corpuscular Hemoglobin 28.6 pg (28.0-32.0); Mean Corpuscular Hgb Conc. 35.1 g/dL (32.0-36.0); Mean Corpuscular Volume 81.5 fL (80.0-100.0); Monocytes # (auto) 0.8 10 ^3/uL (0-1.3); Monocytes % (auto) 7.7 % (0.0-12.0); Neutrophils # (auto) 6.6 10 ^3/uL (1.6-8.6); Red Blood Cells 4.04 10^6/uL (4.5-5.90); Red Cell Distribution Width 12.9 % (11.8-14.3); White Blood Cell 11.1 10^3/uL (4.4-10.8)
[2021-07-10] MEDS: INSULIN LANTUS (GLARGINE) 1 /0.01ml (100units/ml) SC SCH ×2 (06:11→22:00)
[2021-07-10] MEDS: MIDODRINE HCL 10 MG TAB PO SCH ×3 (06:11→18:00)
[2021-07-10 08:00] VITALS: BP_SYST 157; BP_SYST 80; BP_DIAS 63; BP_DIAS 80
[2021-07-10] MEDS: Juven Fruit Punch Powder PACKET 28.8gm PO SCH ×2 (08:00→18:00)
[2021-07-10] MEDS: cefTRIAXone 1GM/50ML D5W 50 ML IV SCH ×2 (09:00→10:22)
[2021-07-10] MEDS: CHOLECALCIFEROL (VITD3) 2,000 UNIT CAP/TAB PO SCH (09:57)
[2021-07-10] MEDS: FLORASTOR (S. BOULARDII) 250 MG CAP PO SCH (09:58)
[2021-07-10] MEDS: APIXABAN 5 MG TAB PO SCH ×2 (09:58→22:00)
[2021-07-10] MEDS: PANTOPRAZOLE 40 MG TAB PO SCH (09:58)
[2021-07-10] MEDS ORDERED: MORPHINE SULFATE INJECTION 2 MG/ML SYRG IV ONE (11:30)
[2021-07-10] MEDS ORDERED: LACTULOSE 20Gm/30ML SOLN PO ONE (11:30)
[2021-07-10 12:00] VITALS: BP 158/90
[2021-07-10] MEDS: DAPTOmycin 500 MG in SODIUM CHL 0.9% 50 ML IV SCH (14:00)
[2021-07-10 16:00] VITALS: BP 131/62
[2021-07-10 22:00] VITALS: BP 121/59
[2021-07-11 05:00] VITALS: BP 148/78
[2021-07-11] MEDS: InsuLIN REG 1unit/0.01ml Soln (100units/ml) SC SCH ×5 (05:58→23:58)
[2021-07-11] MEDS: MIDODRINE HCL 10 MG TAB PO SCH ×3 (06:20→18:17)
[2021-07-11] MEDS: ACCU-CHEK COMFORT CURVE STRIP VI SCH ×5 (06:22→23:26)
[2021-07-11] MEDS: INSULIN LANTUS (GLARGINE) 1 /0.01ml (100units/ml) SC SCH ×2 (06:24→23:57)
[2021-07-11] MEDS: Juven Fruit Punch Powder PACKET 28.8gm PO SCH ×2 (08:00→18:20)
[2021-07-11 09:00] VITALS: BP 102/60
[2021-07-11] MEDS: PANTOPRAZOLE 40 MG TAB PO SCH (10:00)
[2021-07-11] MEDS: FLORASTOR (S. BOULARDII) 250 MG CAP PO SCH (10:00)
[2021-07-11] MEDS: CHOLECALCIFEROL (VITD3) 2,000 UNIT CAP/TAB PO SCH (10:00)
[2021-07-11] MEDS: APIXABAN 5 MG TAB PO SCH ×2 (10:00→23:25)
[2021-07-11 13:00] VITALS: BP 113/61
[2021-07-11] MEDS: DAPTOmycin 500 MG in SODIUM CHL 0.9% 50 ML IV SCH (15:00)
[2021-07-11 17:00] VITALS: BP 99/57
[2021-07-11] MEDS: HYDROcodone-ACET 5/325MG TAB PO PRN (20:00)
[2021-07-11 22:00] VITALS: BP 149/70
[2021-07-12 05:00] VITALS: BP 103/46
[2021-07-12] MEDS: MIDODRINE HCL 10 MG TAB PO SCH ×3 (06:48→17:45)
[2021-07-12] MEDS: ACCU-CHEK COMFORT CURVE STRIP VI SCH ×3 (06:49→17:35)
[2021-07-12] MEDS: INSULIN LANTUS (GLARGINE) 1 /0.01ml (100units/ml) SC SCH ×2 (06:49→21:26)
[2021-07-12] MEDS: InsuLIN REG 1unit/0.01ml Soln (100units/ml) SC SCH ×3 (06:51→17:46)
[2021-07-12 09:00] VITALS: BP 112/72
[2021-07-12] MEDS: APIXABAN 5 MG TAB PO SCH ×2 (09:17→21:25)
[2021-07-12] MEDS: CHOLECALCIFEROL (VITD3) 2,000 UNIT CAP/TAB PO SCH (09:17)
[2021-07-12] MEDS: FLORASTOR (S. BOULARDII) 250 MG CAP PO SCH (09:17)
[2021-07-12] MEDS: Juven Fruit Punch Powder PACKET 28.8gm PO SCH ×2 (09:17→17:45)
[2021-07-12] MEDS: PANTOPRAZOLE 40 MG TAB PO SCH (09:17)
[2021-07-12] MEDS: cefTRIAXone 1GM/50ML D5W 50 ML IV SCH (09:17)
[2021-07-12] MEDS: HYDROcodone-ACET 5/325MG TAB PO PRN ×2 (09:18→21:27)
[2021-07-12 13:00] VITALS: BP 110/66
[2021-07-12] MEDS: DAPTOmycin 500 MG in SODIUM CHL 0.9% 50 ML IV SCH (13:09)
[2021-07-12 17:00] VITALS: BP 121/62
[2021-07-12] MEDS: LACTULOSE 20Gm/30ML SOLN PO PRN (21:27)
[2021-07-12 22:00] VITALS: BP 132/82
[2021-07-13] MEDS: ACCU-CHEK COMFORT CURVE STRIP VI SCH ×4 (04:02→18:00)
[2021-07-13] MEDS: HYDROcodone-ACET 5/325MG TAB PO PRN (04:19)
[2021-07-13 05:00] VITALS: BP 139/75
[2021-07-13] MEDS: MIDODRINE HCL 10 MG TAB PO SCH ×3 (07:05→18:15)
[2021-07-13] MEDS: INSULIN LANTUS (GLARGINE) 1 /0.01ml (100units/ml) SC SCH ×2 (07:06→22:17)
[2021-07-13] MEDS: InsuLIN REG 1unit/0.01ml Soln (100units/ml) SC SCH ×4 (07:07→18:15)
[2021-07-13 09:00] VITALS: BP 147/59
[2021-07-13] MEDS: cefTRIAXone 1GM/50ML D5W 50 ML IV SCH (10:10)
[2021-07-13] MEDS: Juven Fruit Punch Powder PACKET 28.8gm PO SCH ×2 (10:10→18:14)
[2021-07-13] MEDS: FLORASTOR (S. BOULARDII) 250 MG CAP PO SCH (10:11)
[2021-07-13] MEDS: APIXABAN 5 MG TAB PO SCH ×2 (10:11→22:12)
[2021-07-13] MEDS: PANTOPRAZOLE 40 MG TAB PO SCH (10:11)
[2021-07-13] MEDS: CHOLECALCIFEROL (VITD3) 2,000 UNIT CAP/TAB PO SCH (10:12)
[2021-07-13 13:00] VITALS: BP 130/89
[2021-07-13] MEDS ORDERED: GADOTERATE MEG 10 MMOL/20ml INJ (0.5MMOL/ml) IV ONE (13:59)
[2021-07-13] MEDS: HYDROcodone-ACET 10/325MG TAB PO PRN ×2 (15:50→22:13)
[2021-07-13] MEDS: DAPTOmycin 500 MG in SODIUM CHL 0.9% 50 ML IV SCH (16:07)
[2021-07-13 17:00] VITALS: BP 107/67
[2021-07-13 22:00] VITALS: BP 137/73
[2021-07-14] MEDS: InsuLIN REG 1unit/0.01ml Soln (100units/ml) SC SCH ×4 (00:07→18:00)
[2021-07-14] MEDS: ACCU-CHEK COMFORT CURVE STRIP VI SCH ×5 (00:20→22:00)
[2021-07-14 05:00] VITALS: BP 126/77
[2021-07-14] MEDS: HYDROcodone-ACET 10/325MG TAB PO PRN ×3 (05:11→20:27)
[2021-07-14 06:28] LABS: Basophils # (auto) 0.1 10 ^3/uL (0-0.2); Basophils % (auto) 0.5 % (0.0-2.0); Eosinophils # (auto) 0.3 10 ^3/uL (0-0.8); Eosinophils % (auto) 2.7 % (0.0-7.0); Hematocrit 36.2 % (41.0-53.0); Hemoglobin 12.3 g/dL (13.5-17.5); Lymphocytes # (auto) 2.4 10 ^3/uL (0.4-5.4); Lymphocytes % (auto) 21.1 % (10.0-50.0); Mean Corpuscular Hemoglobin 27.6 pg (28.0-32.0); Mean Corpuscular Volume 81.3 fL (80.0-100.0); Monocytes # (auto) 0.6 10 ^3/uL (0-1.3); Monocytes % (auto) 5.2 % (0.0-12.0); Neutrophils # (auto) 8.1 10 ^3/uL (1.6-8.6); Neutrophils % (auto) 70.5 % (37.0-80.0); Nucleated Red Blood Cells % 0.1 %; Red Blood Cells 4.45 10^6/uL (4.5-5.90); Red Cell Distribution Width 12.9 % (11.8-14.3); White Blood Cell 11.6 10^3/uL (4.4-10.8)
[2021-07-14 06:39] LABS: Potassium 3.9 mmol/L (3.5-5.1)
[2021-07-14 06:43] LABS: BUN/Creatinine Ratio 30.4; Calcium 9.2 mg/dL (8.5-10.1)
[2021-07-14] MEDS: MIDODRINE HCL 10 MG TAB PO SCH ×3 (06:46→18:02)
[2021-07-14] MEDS: Juven Fruit Punch Powder PACKET 28.8gm PO SCH ×2 (08:00→18:03)
[2021-07-14 09:00] VITALS: BP 94/60
[2021-07-14] MEDS: PANTOPRAZOLE 40 MG TAB PO SCH (09:40)
[2021-07-14] MEDS: FLORASTOR (S. BOULARDII) 250 MG CAP PO SCH (09:40)
[2021-07-14] MEDS: APIXABAN 5 MG TAB PO SCH ×2 (09:40→22:10)
[2021-07-14] MEDS: cefTRIAXone 1GM/50ML D5W 50 ML IV SCH (09:41)
[2021-07-14] MEDS: INSULIN LANTUS (GLARGINE) 1 /0.01ml (100units/ml) SC SCH ×2 (09:41→22:14)
[2021-07-14] MEDS: CHOLECALCIFEROL (VITD3) 2,000 UNIT CAP/TAB PO SCH (09:41)
[2021-07-14 13:00] VITALS: BP 103/59
[2021-07-14] MEDS: DAPTOmycin 500 MG in SODIUM CHL 0.9% 50 ML IV SCH (14:00)
[2021-07-14 16:34] VITALS: BP_SYST 122; BP_SYST 129; BP_DIAS 71; BP_DIAS 92
[2021-07-14] MEDS: MORPHINE SULFATE INJECTION 2 MG/ML SYRG IV PRN (17:23)
[2021-07-14 21:50] VITALS: BP 104/64
[2021-07-14] MEDS: LACTULOSE 20Gm/30ML SOLN PO PRN (22:28)
[2021-07-15 05:00] VITALS: BP 122/65
[2021-07-15] MEDS: MORPHINE SULFATE INJECTION 2 MG/ML SYRG IV PRN ×2 (05:37→15:24)
[2021-07-15] MEDS: InsuLIN REG 1unit/0.01ml Soln (100units/ml) SC SCH ×4 (06:00→18:41)
[2021-07-15] MEDS: ACCU-CHEK COMFORT CURVE STRIP VI SCH ×3 (06:11→18:41)
[2021-07-15] MEDS: MIDODRINE HCL 10 MG TAB PO SCH ×3 (06:11→18:40)
[2021-07-15] MEDS: INSULIN LANTUS (GLARGINE) 1 /0.01ml (100units/ml) SC SCH (06:25)
[2021-07-15 09:07] VITALS: BP 102/47
[2021-07-15] MEDS: Juven Fruit Punch Powder PACKET 28.8gm PO SCH ×2 (10:35→18:40)
[2021-07-15] MEDS: APIXABAN 5 MG TAB PO SCH (10:36)
[2021-07-15] MEDS: cefTRIAXone 1GM/50ML D5W 50 ML IV SCH (10:36)
[2021-07-15] MEDS: CHOLECALCIFEROL (VITD3) 2,000 UNIT CAP/TAB PO SCH (10:37)
[2021-07-15] MEDS: PANTOPRAZOLE 40 MG TAB PO SCH (10:37)
[2021-07-15] MEDS: FLORASTOR (S. BOULARDII) 250 MG CAP PO SCH (10:37)
[2021-07-15 13:00] VITALS: BP 123/77
[2021-07-15] MEDS: DAPTOmycin 500 MG in SODIUM CHL 0.9% 50 ML IV SCH (14:00)
[2021-07-15 16:38] VITALS: BP 139/68
[2021-07-15] MEDS: HYDROcodone-ACET 10/325MG TAB PO PRN (18:41)
== END 2021-07-15 21:10 | DRG 239 ==
LOC: EDBD 00:58 → ER 01:11 → TELE 05:27 → TELE-WESTW 16:28 → WEST WING 07-10 09:34
PROVIDERS: ADMIT Internal Medicine; ATTEND Internal Medicine
PROC: 0Y6M0ZB Detachment at Right Foot, Partial 2nd Ray, Open Approach (ICD-10-PCS; 2021-07-01)
PROC: 0Y6M0ZC Detachment at Right Foot, Partial 3rd Ray, Open Approach (ICD-10-PCS; 2021-07-01)
PROC: 0Y6M0ZF Detachment at Right Foot, Partial 5th Ray, Open Approach (ICD-10-PCS; 2021-07-01)
PROC: 0Y6M0ZD Detachment at Right Foot, Partial 4th Ray, Open Approach (ICD-10-PCS; 2021-07-01)
PROC: 0Y6M0Z9 Detachment at Right Foot, Partial 1st Ray, Open Approach (ICD-10-PCS; principal; 2021-07-01 10:45)
PROC: 05HC33Z Insertion of Infusion Device into Left Basilic Vein, Percutaneous Approach (ICD-10-PCS; 2021-07-06)
PROC: B54NZZA Ultrasonography of Left Upper Extremity Veins, Guidance (ICD-10-PCS; 2021-07-06)
DX: I95.1 Orthostatic hypotension (principal); N17.0 Acute kidney failure with tubular necrosis; M86.8X7 Other osteomyelitis, ankle and foot; S32.059A Unspecified fracture of fifth lumbar vertebra, initial encounter for closed fracture; R65.10 Systemic inflammatory response syndrome (SIRS) of non-infectious origin without acute organ dysfunction; L97.919 Non-pressure chronic ulcer of unspecified part of right lower leg with unspecified severity; E11.69 Type 2 diabetes mellitus with other specified complication; L97.519 Non-pressure chronic ulcer of other part of right foot with unspecified severity; I95.9 Hypotension, unspecified; Z20.822 Contact with and (suspected) exposure to COVID-19; D17.0 Benign lipomatous neoplasm of skin and subcutaneous tissue of head, face and neck; D72.829 Elevated white blood cell count, unspecified; E11.621 Type 2 diabetes mellitus with foot ulcer; I12.9 Hypertensive chronic kidney disease with stage 1 through stage 4 chronic kidney disease, or unspecified chronic kidney disease; E11.65 Type 2 diabetes mellitus with hyperglycemia; W19.XXXA Unspecified fall, initial encounter; K21.00 Gastro-esophageal reflux disease with esophagitis, without bleeding; E88.09 Other disorders of plasma-protein metabolism, not elsewhere classified; B95.62 Methicillin resistant Staphylococcus aureus infection as the cause of diseases classified elsewhere; E11.22 Type 2 diabetes mellitus with diabetic chronic kidney disease; M81.0 Age-related osteoporosis without current pathological fracture; E78.5 Hyperlipidemia, unspecified; E55.9 Vitamin D deficiency, unspecified; F15.10 Other stimulant abuse, uncomplicated; N18.32 Chronic kidney disease, stage 3b; Z79.01 Long term (current) use of anticoagulants; Z79.4 Long term (current) use of insulin; Z86.711 Personal history of pulmonary embolism; Z86.718 Personal history of other venous thrombosis and embolism
CPT/HCPCS: 36415; 70450; 71045; 71275; 72100; 72131; 72158; 73630; 73718; 80048; 80053; 80061; 80307; 81001; 82024; 82306; 82533; 82962; 83036; 83735; 83880; 83970; 84100; 84132; 84156; 84166; 84443; 84484; 85014; 85018; 85025; 85379; 85610; 85652; 85730; 86141; 86850; 86900; 86901; 87040; 87070; 87075; 87077; 87086; 87186; 87205; 93005; 93306; 93886; 93925; 93970; 96361; 96365; 96368; 97110; 97116; 97163; 97530; 99291; G0378; J0330; J0690; J0696; J1100; J1815; J2250; J2704; J3490